=== PATIENT | male | born 1965 | race Caucasian/White ===

== ENCOUNTER 2019-02-23 12:24 | Emergency (ER) | payer MEDICAID, SELFPAY ==
[2019-02-23] VITALS (7 sets, daily range): BP systolic 117–137; BP diastolic 68–82; PULSE 64–99; RESP 16–26; TEMP 36.8; O2SAT 94–99
--- NOTE | 2019-02-23 12:43 | ED.GENADUL_ITS ---
Discharge Plan Disposition Patient Disposition: HOME Condition: Improving Discharge Details Chief Complaint: Allergic Clinical Impression: Odontogenic infection of jaw Primary Care Provider: Jonas Garnett ED Provider: Jose Guadalupe Schulte Home Meds and New Rx's Prescriptions: New clindamycin HCl 300 mg capsule 300 mg PO Q6H Qty: 30 RF: 0 Continued citalopram [Celexa] 20 MG tablet 20 mg PO DAILY RF: 0 Discharge Instructions Additional Instructions: Warm, salt water gargles to promote draining of infection. Please follow-up with dentistry for recheck. Call [place] [facility] tomorrow for a follow-up of early next week Take antibiotics as prescribed. Return if you have increased facial swelling, difficulty swallowing, or any other acute concern Medical Decision Making 53-year-old male presents from home with 2+ days of left face and neck swelling as well as complaint of pain with chewing. He does have a few dental caries on exam and most likely has developed an odontogenic infection. He is afebrile, pulse is slightly elevated in the 90s, but normal blood pressure . Differential diagnosis includes deep space infection. Patient had IV access established, given fluids, dexamethasone, clindamycin, referred for CT. Patient improved following the administration of medications. He had does have an elevated white blood cell count of 15. Chemistries are reassuring. CT does not reveal evidence of focal abscess, there is soft tissue swelling present. Please see formal report. Patient improved, swelling decreased, do not appreciate focal area of abscess that is amenable to drainage. Placed him on a course of clindamycin. He is to follow-up with his dentist in [place]. He understands return precautions. Lab Data Lab results reviewed: Yes I reviewed the patient's lab results. Laboratory Results - last 24 hr 02/23/19 02/23/19 12:40 12:40 WBC 15.95 H RBC 5.42 Hgb 16.6 Hct 48.5 MCV 89.5 MCH 30.6 MCHC 34.2 RDW 13.6 Plt Count 162 MPV 11.2 H Immature Gran % 0.3 Neutrophils % 73.3 Lymphocytes % 15.0 Monocytes % 11.0 Eosinophils % 0.2 Basophils % 0.2 Absolute Neutrophils 11.69 H Absolute Lymphocytes 2.39 Absolute Monocytes 1.75 H Absolute Eosinophils 0.03 Absolute Basophils 0.03 Sodium 137 Potassium 4.0 Chloride 100 Carbon Dioxide 31.0 Anion Gap 6.0 BUN 12 Creatinine 1.13 Estimated GFR/1.73 m2 >= 60.00 Glucose 108 H Calcium 9.3 Total Bilirubin 0.8 AST 12 L ALT 17 Alkaline Phosphatase 76 Total Protein 7.8 Albumin 3.6 HPI General Mode of arrival: ambulatory . Date/Time Provider Initiated Documentation: 02/23/19 12:34 . Limitations to Documentation: no limitations . Information obtained by: patient . History of Present Illness 53 year old M presents to the emergency department with the chief complaint of Left face and neck swelling over 2 days time, hurts to chew, described as moderate, Quality is described as dull and constant, and is localized to the face, neck and left. Patient reports no radiation. Patient started experiencing this day(s) and it has been constant. No relieving factors improve symptom(s), No exacerbating factors reported . Patient notes denies fever/chills. Patient did receive the following treatments prior to arrival, none Related Data Home Medications Medication Instructions Recorded Confirmed citalopram [Celexa] 20 mg PO DAILY tab-cap 06/18/14 02/23/19 clindamycin HCl 300 mg PO Q6H #30 cap 02/23/19 Previous Rx's Medication Instructions Recorded clindamycin HCl 300 mg PO Q6H #30 cap 02/23/19 Allergies Allergy/AdvReac Type Severity Reaction Status Date / Time Penicillins Allergy Unknown rash Unverified 02/23/19 12:58 General Stated Complaint: Allergic BAYRON: 3 Review of Systems Review of Systems 8 systems reviewed and otherwise - [facility] Social History Smoking/Tobacco Use Status: Current every day Alcohol Intake: current Alcohol Intake frequency: a few times a month Drug use: Never Do you feel safe at home: Yes Do you feel safe in your relationship?: Yes Exam Narrative Exam Narrative: GEN: awake, alert, oriented 3. Pleasant, well groomed, interactive. HEAD: Normocephalic, atraumatic ENT: Mucous membranes moist, oropharynx with few dental caries, left premolar mandibular buccal swelling without fluctuance, External ear exam unremarkable EYES: PERRL, EOMI NECK: Full ROM, submandibular left greater than right lymphadenopathy CHEST/RESP: Nontender, clear to auscultation bilateral, no wheeze/rhonchi/rales CARDIOVASCULAR: RRR, no murmur, rub angie. 2+ Rad pulse bilateral ABDOMEN: Soft, nontender, no mass. +Bowel sounds EXT: Full ROM, no edema, no rash Neuro: Grossly normal neurologic exam, conversant, interactive. Psych: Speech fluent, thoughts congruent, affect normal Course Vital Signs Temperature 36.8 C 02/23/19 12:32 Pulse 99 H 02/23/19 12:32 Respiratory Rate 16 02/23/19 12:32 Blood Pressure 137/82 02/23/19 12:32 Pulse Oximetry 99 02/23/19 12:32 Temperature 36.8 C 02/23/19 12:32 Temperature Source Temporal Artery Scan 02/23/19 12:32 Pulse 99 H 02/23/19 12:32 Respiratory Rate 16 02/23/19 12:32 Blood Pressure 137/82 02/23/19 12:32 Blood Pressure Position Sitting 02/23/19 12:32 Pulse Oximetry 99 02/23/19 12:32 Pain Level 3 02/23/19 12:32
[2019-02-23] MEDS: Ketorolac 30 MG/ML VIAL IVP (12:48)
[2019-02-23] MEDS: Dexamethasone 10 MG/ML VIAL IVP (12:49)
[2019-02-23] MEDS: CLINDAMYCIN 900 MG/50 ML BAG 50 MG IVPB (12:49)
[2019-02-23] MEDS: Normal Saline 1,000 ML 150 ML IV (12:55)
[2019-02-23] MEDS: Normal Saline Flush 10 ML SYR IVP (12:55)
[2019-02-23 13:00] LABS: Abs Immature Grans 0.04 k/cumm (0.0-0.09); Absolute Basophil Count 0.03 k/cumm (0.0-0.2); Absolute Eosinophil Count 0.03 k/cumm (0.0-0.7); Absolute Monocyte Count 1.75 k/cumm (0.11-0.7); Basophils % 0.2; Eosinophils % 0.2; HCT 48.5 % (40.0-50.0); HGB 16.6 g/dL (13.5-17.5); Immature Grans % 0.3; Mean Corp. HGB Concentration 34.2 g/dL (32.0-36.0); Mean Corpuscular Hemoglobin 30.6 pg (27.0-33.0); Mean Corpuscular Volume 89.5 fL (80-95); Mean Platelet Volume 11.2 fL (8.0-11.0); Neutrophils % 73.3; Platelet Count 162 x1000/uL (130-400); RBC 5.42 m/cumm (4.50-6.00); RBC Distribution Width 13.6 % (11.8-14.1); White Blood Cell Count 15.95 k/cumm (4.4-10.8)
[2019-02-23 13:01] LABS: Absolute Lymphocyte Count 2.39 k/cumm (1.2-3.4); Absolute Neutrophil Count 11.69 k/cumm (1.2-6.7)
--- NOTE | 2019-02-23 13:06 | DI.CT_ITS ---
SYMPTOMS/DIAGNOSIS: LEFT FACE AND SUBMANDIBULAR SWELLING X 1 DAY, ODONTOGENIC CT EXAMINATION OF THE FACE: The study was carried out with intravenous administration of 100 cc of Omnipaque 350. There is soft tissue swelling over the left side of the face. No localized soft tissue mass or evidence of an abscess is seen. Allowing for artifacts generated by the patient's dentition, there is a 1.4 x 1.2 cm well- circumscribed radiolucency adjacent to the apex of two left teeth in the anterior portion of the left mandible. The findings could certainly represent a periapical abscess. Further evaluation with a pantograph study or bitewing projections is recommended.
[2019-02-23 13:13] LABS: ALT 17 U/L (12-78); AST 12 U/L (15-37); Albumin 3.6 g/dL (3.4-5.0); Alkaline Phosphatase 76 U/L (46-116); BUN 12 mg/dL (7-18); Bilirubin, Total 0.8 mg/dL (0.2-1.0); CREATININE 1.13 mg/dL (0.70-1.30); Calcium 9.3 mg/dL (8.5-10.1); Chloride 100 mmol/L (98-107); Glucose 108 mg/dL (70-100); Sodium 137 mmol/L (136-145); Total Protein 7.8 g/dL (6.4-8.2)
[2019-02-23] MEDS: Omnipaque 350 MG/ML 100 ML BTL IV (14:06)
== END 2019-02-23 15:14 | disposition home or self-care (01) ==
PROVIDERS: Emergency Provider Emergency Medicine; PCP Family Medicine
DX: M27.2 Inflammatory conditions of jaws (principal)
CPT/HCPCS: 36415; 70491; 80053; 96361; 96365; 96375; 99285; 85025; 99284; J1100; J1885; J3490

== ENCOUNTER 2019-03-14 11:58 | Outpatient (REF) | payer MEDICAID, SELFPAY ==
[2019-03-14 21:49] LABS: Calculated LDL 171; Cholesterol 247 mg/dL (50-200); Glucose 86 mg/dL (70-100); HDL Cholesterol 40 mg/dL (40-60); TSH (W/Ref FT4) 1.78 uIU/mL (0.358-3.74); Triglyceride 181 mg/dL (30-150)
== END 2019-03-14 12:18 ==
LOC: NCHCN 11:58
PROVIDERS: PCP Family Medicine; Visit Provider Family Medicine
DX: E03.9 Hypothyroidism, unspecified (principal); Z00.00 Encounter for general adult medical examination without abnormal findings; Z13.220 Encounter for screening for lipoid disorders
CPT/HCPCS: 80061; 82947; 83721; 84443

== ENCOUNTER 2019-11-09 11:50 | Day surgery (SDC) | payer MEDICAID, SELFPAY ==
[2019-11-09 12:04] VITALS: BP 102/75; PULSE 101; RESP 20; TEMP 36.6; O2SAT 98
[2019-11-09] MEDS: Lactated Ringers 1,000 ML 80 ML IV (12:25)
--- NOTE | 2019-11-09 13:36 | BOWEL_PTH ---
PATIENT: JOEY PORTER LOC: [facility] U#:[id number] AGE/SX: 54/M ROOM: RE11/09/[address]: Elsi Colmenares : 1965 BED: DIS: 11/09/2019 SPEC #: [id number] RECD: 11/09/19 16:53 STATUS: DAHLIA REQ #: [id number] KRISTI: 11/09/19 13:[address]: Elsi Colmenares DEPT: Surgical Specimen RECD BY: Laila Chaudhari ENTERED: 11/09/19 16:54 SP TYPE: Bowel OTHR DR: Joey Garnett Tissues: 1 - BIOPSY BOWEL Procedures: GROSS AND MICRO LEVEL 4 Comments: [id number]
--- NOTE | 2019-11-09 14:00 | COLE_ITS ---
Date of service: 11/09/19 Time of Service: 14:07 Colonoscopy Report Date of procedure: 11/09/19 Pre-op diagnosis general: polyps/+family Hx Post-op diagnosis procedure note: same Surgeon: Elsi Colmenares Anesthesia proc note operative: GETA Estimated blood loss (mL): 1 Pathology: other Complications: None Disposition: same day Prep: Miralax/Dulcolax Retraction Time: 15 Procedure Description: After informed consent was obtained the patient was taken to the procedure room and placed in a left decubitous position. Monitors were applied and a time out was done. The patients name, date of , procedure, allergies to medications and metal in their body was reviewed. The patient was then sedated. Once sedated and comfortable a rectal exam was done. External exam show ext hem.. Internal exam revealed a normal sphincter tone and no palpable masses. The prostate nl. The scope was then introduced and retrofelexed. No internal hemorrhoids were identified- there was a signif amount of scaring at the 6oclock position. The scope was then advanced to the cecumw/difficulty. The TI and appendiceal orifice were identified. The prep was adequate. The scope was then slowly retracted over 15 minutes back into the rectum. Polyps were removed in rectum. x4 w/ hot biter. Lg polyps/5mm x1 hot snare. Specimen was retrieved and no bleeding is noted. Mucosa is pink and healthy. There are no AVMs or diverticu li present. The scope was removed and the patient was woken up and taken back to Same day surgery in stable condition. The patient tolerated the procedure well and there were no immediate complicati ons. Follow up: The patient should follow up in 3-5 years-path pd, unless they develop changes in bowel habits or other new gastrointestinal complaints.
[2019-11-09 14:19] VITALS: BP 112/65; PULSE 63; RESP 20; TEMP 36.5; O2SAT 99
--- NOTE | 2019-11-09 14:36 | W.PM.DSUDISC ---
Discharge Plan Disposition Patient Disposition: HOME Condition: Good Discharge Details Reason For Visit: colon scope Attending Provider: Elsi Colmenares Primary Care Provider: Jonas Garnett Home Meds and New Rx's Prescriptions: No Action citalopram [Celexa] 20 MG tablet 20 mg PO DAILY RF: 0 Discharge Instructions Instructions: High Fiber Diet (GEN) Additional Instructions: Findings: polyps x4 Follow up: repeat scope in 3-5 yrs. Will send a letter w/ results of pathology and when to repeat scope Please call if you develop: fevers >101.5 Nausea or Vomiting Abdominal pain that is not transient DAY SURGERY UNIT POST COLONOSCOPY INSTRUCTIONS 1. Because there will be medication in your system for the next 24 hours, you may feel a little sleepy. Your coordination will be affected. Therefore: a. Do not drive or operate dangerous equipment for 24 hours. b. Do not drink alcohol beverages for 24 hours (not even beer). c. Plan to go home and rest for the day. 2. Generally there are no restrictions on your activity after a day or so has gone by, but you may feel a bit fatigued for a few days. 3 After you arrive home you may have a light meal and return to a normal diet as you can tolerate it without feeling sick to your stomach. 4. After surgery, you may feel pain or discomfort. This should be only transient, but if it persists please contact your doctor. 5. If there are any questions regarding the findings of your procedure, please feel free to contact your doctor. 6. If you are unable to contact your doctor with a problem, contact the hospital at [phone]. 7. Continue all your regular medications unless directed otherwise. I understand the above instructions and have no questions. Signature of Patient or Responsible Adult Escort Date/Time Name of Responsible Adult Escort Signature of Nurse Date/Time Discharge Orders Discharge Orders: Discharge Order (Routine); Ordered 11/09/19 Ordered By: Elsi Colmenares
== END 2019-11-09 14:45 | disposition home or self-care (01) ==
PROVIDERS: PCP Family Medicine; Visit Provider Surgery
PROC: 0DJD8ZZ Inspection of Lower Intestinal Tract, Via Natural or Artificial Opening Endoscopic (ICD-10-PCS; CPT 45378; principal; 2019-11-09 13:00)
DX: Z12.11 Encounter for screening for malignant neoplasm of colon (principal); K62.1 Rectal polyp; K62.5 Hemorrhage of anus and rectum; Z86.010 Personal history of colon polyps; Z80.0 Family history of malignant neoplasm of digestive organs; F17.210 Nicotine dependence, cigarettes, uncomplicated
CPT/HCPCS: 45385; 45384; 88305

== ENCOUNTER 2020-12-31 12:22 | Emergency (ER) | payer MEDICAID, SELFPAY ==
[2020-12-31 12:29] VITALS: BP 133/82; PULSE 110; TEMP 36.7; O2SAT 98
--- NOTE | 2020-12-31 13:06 | ED.GENADUL_ITS ---
Discharge Plan Disposition Patient Disposition: HOME Condition: Improving Discharge Details Clinical Impression: Dental infection Primary Care Provider: Jonas Garnett ED Provider: Jose Guadalupe Schulte Home Meds and New Rx's Prescriptions: New clindamycin HCl 300 mg capsule 300 mg PO Q6H 7 Days Qty: 28 RF: 0 Discontinued citalopram [Celexa] 20 MG tablet 20 mg PO DAILY RF: 0 Discharge Instructions Instructions: Dental Abscess (ED) Additional Instructions: Continue warm water soaks, gargle and spit. Take antibiotics as prescribed today, then begin prescription. I recommend you take an [id number] probiotic or once daily live culture yogurt while on this medication. Return for worsening swelling, change to voice, drooling, or any other acute concerns. May use Tylenol as needed for discomfort. Medical Decision Making This is a 55-year-old male with history of previous dental infections. Now with 2 days of left lower jaw pain and swelling. On exam he has a fluctuant area on the buccal aspect abutting tooth approximately #20. No significant lingual s welling, the uvula is midline oropharynx is otherwise unremarkable. He noted some difficulty with opening his jaw but this is not appreciated on exam. After patient was consented for the procedure, the area of fluctuance was anesthetized, a needle stab incision was performed with aspiration approximately 2 cc of purulent material. We will place the patient on clindamycin given his antibiotic allergy profile. He is stable and improving. He is appropriate for outpatient management. HPI General Mode of arrival: ambulatory . Date/Time Provider Initiated Documentation: 12/31/20 12:24 . Limitations to Documentation: no limitations . Information obtained by: patient . History of Present Illness 55 year old M presents to the emergency department with the chief complaint of Left lower jaw pain and swelling, described as moderate and similar to prior episodes, Quality is described as dull and constant, and is localized to the mouth. Patient reports no radiation. Patient started experiencing this day(s) and it has been constant. No relieving factors improve symptom(s), No exacerbating factors reported . Patient notes denies chest pain, diaphoresis, fever/chills, headaches, nausea/vomiting and shortness of breath. Patient did receive the following treatments prior to arrival, none Related Data Home Medications Medication Instructions Recorded Confirmed clindamycin HCl 300 mg PO Q6H 7 Days #28 cap 12/31/20 Previous Rx's Medication Instructions Recorded clindamycin HCl 300 mg PO Q6H 7 Days #28 cap 12/31/20 Allergies Allergy/AdvReac Type Severity Reaction Status Date / Time bee venom protein (honey bee) Allergy Intermediate swelling Verified 12/31/20 12:34 Penicillins Allergy Unknown rash Unverified 12/31/20 12:34 General Stated Complaint: DentalOral BAYRON: 4 Review of Systems Narrative: No drooling, no difficulty breathing, no change to voice. 6 systems reviewed and otherwise negative [facility] Medical History Acute allergic conjunctivitis Alcohol abuse, in remission Chronic anxiety History of back pain Hyperlipidemia Hypothyroid Pt. states he is unsure of diagnosis Tobacco dependence Tubular adenoma of colon Surgical History (Updated 11/21/19 @ 16:03 by Ana Luisa Bullard RN) History of colonoscopy (~11/09/19) Social History Smoking/Tobacco Use Status: Current every day Tobacco Type: cigarettes Smoking packs per day: 1 Smoking cigarettes per day: 20.0 Smoking risk assessment performed?: Yes Alcohol Intake: current Alcohol Intake frequency: a few times a month Drug use: Occasionally Substance use type: marijuana Do you feel safe at home: Yes Do you feel safe in your relationship?: Yes Exam Narrative Exam Narrative: GEN: awake, alert, oriented 3. Pleasant, well groomed, interactive. HEAD: Normocephalic, atraumatic ENT: Mucous membranes moist, oropharynx with dental caries present, tender left lower buccal aspect with fluctuance and swelling overlying approximately tooth 20. Minimal lingual aspect swelling. External ear exam unremarkable EYES: PERRL, EOMI NECK: Full ROM, no BRENNAN, no menigismus CHEST/RESP: Nontender, no respiratory distress CARDIOVASCULAR: RRR, no murmur, rub anige. 2+ Rad pulse bilateral Neuro: Grossly normal neurologic exam, conversant, interactive. Psych: Speech fluent, thoughts congruent, affect normal Course Vital Signs Vital signs: Vital Signs Temperature 36.7 C 12/31/20 12:29 Pulse 110 H 12/31/20 12:29 Blood Pressure 133/82 12/31/20 12:29 Pulse Oximetry 98 12/31/20 12:29 Temperature 36.7 C 12/31/20 12:29 Temperature Source Temporal Artery Scan 12/31/20 12:29 Pulse 110 H 12/31/20 12:29 Respiratory Effort Non-Labored 12/31/20 12:31 Blood Pressure 133/82 12/31/20 12:29 Blood Pressure Position Sitting 12/31/20 12:29 Pulse Oximetry 98 12/31/20 12:29 Oxygen Delivery Method Room Air 12/31/20 12:29 Oxygen Flow Rate 0 12/31/20 12:29 Pain Level 0 12/31/20 12:32 Comment 12/31/20 12:29 Procedures Abscess I/D Site: Face Side (if applicable): Left Local Anesthetic: Lidocaine 1% Technique: Needle Aspiration Amount of fluid expressed (mL): 2
[2020-12-31] MEDS: Clindamycin 150 MG CAP, 12 CAPS/BTL 450 MG PO (13:19)
== END 2020-12-31 13:22 | disposition home or self-care (01) ==
PROVIDERS: Emergency Provider Emergency Medicine; PCP Family Medicine
DX: K04.7 Periapical abscess without sinus (principal)
CPT/HCPCS: 10060